=== PATIENT | male | born 1995 | race Caucasian/White ===

== ENCOUNTER 2020-11-20 15:43 | Observation (INO) ==
[2020-11-20] MEDS ORDERED: 0.9 % Sodium Chloride 1,000 ML IVC STA ×2 (16:22→18:39)
[2020-11-20] MEDS ORDERED: Ketorolac 15 MG/ML VIAL IVP ONE (16:22)
[2020-11-20 16:54] LABS: Basophils % 0.1 %; Eosinophils % 0.1 %; Hematocrit 45.4 % (37.5-50.1); Hemoglobin 15.8 g/dL (12.9-16.9); Immature Granulocytes % 0.3 % (0-4); Lymphocytes # 1.5 K/mcL (0.6-4.6); Lymphocytes % 10.4 %; Mean Corpuscular HGB Conc 34.8 g/dL (31.6-35.5); Mean Corpuscular Volume 94.8 fL (83.0-100.0); Mean Platelet Volume 10.2 fL (9.4-12.4); Monocytes # 0.5 K/mcL (0.0-1.3); Monocytes % 3.6 %; Neutrophils # 12.4 K/mcL (1.6-8.9); Platelet Count 314 K/mcL (140-400); Red Blood Count 4.79 M/mcL (4.19-5.50); Red Cell Distribution Width 12.1 % (11.5-14.5); Segmented Neutrophils % 85.5 %; White Blood Count 14.5 K/mcL (4.3-11.1)
[2020-11-20] MEDS ORDERED: Ondansetron 4 MG/2 ML VIAL IVP STA (17:10)
[2020-11-20 17:14] LABS: BUN/Creatinine Ratio 11 (6-26); Blood Urea Nitrogen 11 mg/dL (6-20); Carbon Dioxide 20 mEq/L (23-29); Chloride 106 mEq/L (98-107); Glucose 109 mg/dL (70-105); Osmolality,Calculated 284 (280-300); Potassium 3.6 mEq/L (3.5-5.1); Sodium 137 mEq/L (136-145); eGFR For African Americans > 60 (> 60); eGFR For Non-African Americans > 60 (> 60)
[2020-11-20] MEDS ORDERED: Morphine Sulfate 2 MG/ML SYRINGE IVP PRN (17:17)
[2020-11-20 18:25] LABS: Amorphous Sediment,Urine Few per hpf (None-Few); Bacteria,Urine Few per hpf (None-Few); Bilirubin,Urine Negative (Negative); Blood,Urine Moderate (Negative); Calcium Oxalate Crystals,Urine Present; Clarity,Urine Turbid (Clear); Color,Urine Yellow (Yellow); Glucose,Urine (UA) Normal (Normal); Ketones,Urine 40 mg/dL (Negative); Leukocyte Esterase,Urine Negative (Negative); Mucus,Urine Many per lpf (None-Few); Nitrite,Urine Negative (Negative); Protein,Urine 100 mg/dL (Neg-Trace); RBC,Urine 15-30 per hpf (0-3); Specific Gravity,Urine > 1.030 (1.010-1.025); Squamous Epithelial Cell,Urine Few per hpf (None-Few); Urobilinogen,Urine Normal (Normal)
[2020-11-20] MEDS ORDERED: cefTRIAXone 1,000 MG in Water for inj. (sterile) 10 ML IVP ONE (18:27)
[2020-11-20] MEDS ORDERED: Nicotine 21 MG PATCH.TD24 TD SCH (18:45)
[2020-11-20 19:02] VITALS: BP 119/73
== END 2020-11-20 20:30 | disposition left against medical advice (07) ==
LOC: 3ANU 15:43 → EMEROOARM 15:43 → 3ANU 19:56
PROVIDERS: ADMIT Internal Medicine; ATTEND Internal Medicine